=== PATIENT | female | born 1995 | race Caucasian/White ===

== ENCOUNTER → 2020-07-04 | Outpatient (CLI) | payer MEDICAID ==
[~2020-07-04] VITALS: Ht 162.6 cm; Wt 69.4 kg
== END ==
LOC: LAB 10:54
PROVIDERS: ATTEND Obstetrics & Gynecology
DX: O09.93 Supervision of high risk pregnancy, unspecified, third trimester (principal); Z3A.29 29 weeks gestation of pregnancy
CPT/HCPCS: 36415; 86850; 86900; 86901; 96372; J2791; J2790

== ENCOUNTER 2020-07-23 22:20 | Observation (INO) | payer MEDICAID ==
[2020-07-23] MEDS ORDERED: ACETAMINOPHEN 325 MG TABLET. PO PRN (22:30)
[2020-07-23 23:03] LABS: BILIRUBIN,URINE NEGATIVE (NEG); CLARITY,URINE CLEAR; COLOR,URINE YELLOW; NITRITE,URINE NEGATIVE (NEG); PH,URINE 7.5 (<5.0-8.0); PROTEIN,URINE NEGATIVE (NEG-TRACE)
[2020-07-23 23:09] LABS: BACTERIA,URINE MODERATE /HPF (0-FEW); RBC,URINE OCC /HPF (0-2); WBC,URINE 20-40 /HPF (0-4)
[2020-07-23 23:10] LABS: BARBITURATES NEG (NEG); BENZODIAZEPINES NEG (NEG); CANNABINOIDS NEG (NEG); COCAINE NEG (NEG); METHADONE NEG (NEG); OPIATES NEG (NEG); PHENCYCLIDINE NEG (NEG)
[2020-07-23 23:11] LABS: AMPHETAMINE/METHAMPHETAMINE NEG (NEG)
[2020-07-23] MEDS: IV RINGERS,LACTATED 1000ML 1,000 ML IV PRN ×2 (23:14→23:58)
[2020-07-23 23:43] LABS: BASO % 0 % (0-3); EOS # 0.2 x10^3/uL (0.0-0.7); EOS % 2 % (0-3); HEMATOCRIT 32.8 % (36.0-47.0); HEMOGLOBIN 11.2 g/dL (12.0-15.5); LYMPH % 24 % (24-48); MEAN CORPUSCULAR HEMOGLOBIN 30 pg (25-35); MEAN CORPUSCULAR HGB CONC 34 g/dL (31-37); MEAN CORPUSCULAR VOLUME 88 fL (79-100); MONO # 0.7 x10^3/uL (0.0-1.1); MONO % 8 % (0-9); NEUT # 5.7 x10^3/uL (1.8-7.7); NEUT % 66 % (31-73); PLATELET COUNT 157 x10^3/uL (140-400); RED BLOOD COUNT 3.75 x10^6/uL (3.50-5.40); RED CELL DISTRIBUTION WIDTH 13.5 % (11.5-14.5); WHITE BLOOD COUNT 8.6 x10^3/uL (4.0-11.0)
[2020-07-24] MEDS ORDERED: TERBUTALINE 1 MG/ML VIAL. ONE (00:10)
[2020-07-24 00:17] VITALS: BP 103/55
[2020-07-24] MEDS ORDERED: TERBUTALINE 1 MG/ML VIAL. SQ ONE (00:30)
== END 2020-07-24 02:10 | disposition home or self-care (01) ==
LOC: 3 SO LND 22:20
PROVIDERS: ADMIT Obstetrics & Gynecology; ATTEND Obstetrics & Gynecology
DX: O30.003 Twin pregnancy, unspecified number of placenta and unspecified number of amniotic sacs, third trimester (principal); Z20.822 Contact with and (suspected) exposure to COVID-19; O62.9 Abnormality of forces of labor, unspecified; O26.893 Other specified pregnancy related conditions, third trimester; R10.9 Unspecified abdominal pain; Z3A.31 31 weeks gestation of pregnancy; Z79.899 Other long term (current) drug therapy
CPT/HCPCS: 36415; 59025; 80307; 81001; 82947; 85025; 86592; 86703; 86762; 86850; 86900; 86901; 87086; 87340; 87426; 96360; 96361; 96372; G0378; G0379; J3105; J7120; U0003; U0005

== ENCOUNTER 2021-01-03 17:56 | Emergency (ER) | payer MEDICAID ==
[~2021-01-03] VITALS: Ht 157.5 cm; Wt 61.8 kg
[2021-01-03 19:33] VITALS: BP 108/59
[2021-01-03 20:02] LABS: BILIRUBIN,URINE NEGATIVE (NEG); CLARITY,URINE CLEAR; COLOR,URINE YELLOW; NITRITE,URINE POSITIVE (NEG); PROTEIN,URINE 30 mg/dL (NEG-TRACE); UROBILINOGEN,URINE 0.2 mg/dL (0.2 mg/dL)
[2021-01-03] MEDS ORDERED: PHEN-318 PO (20:04)
[2021-01-03] MEDS ORDERED: NITR100C62 PO (20:04)
--- NOTE | 2021-01-03 20:04 | PHYS DOC ---
Past Medical History Past Surgical History: Other Additional Past Surgical Histo: tubes in ears General Adult EDM: Chief Complaint: PAIN ON URINATION HPI: HPI: Patient is a 25 year old female presents with a chief complaint of dysuria urinary frequency suprapubic discomfort and bilateral flank pain. Patient states symptoms have been ongoing x1 day progressive becoming worse. Patient denies any associated nausea vomiting diarrhea. Review of Systems: Review of Systems: Review of systems: Constitutional symptoms- No fever, no chills. Eyes- No Discharge, No Visual Loss Respiratory symptoms- No shortness of breath, No wheezing, No Dyspnea on Exertion Cardiovascular Systems; No chest pain, No Palpitations, No syncope Gastrointestinal symptoms: NO abdominal pain, no nausea, no vomiting or diarrhea. Genitourinary symptoms: Positive dysuria positive urinary frequency positive pelvic discomfort Musculoskeletal symptoms: No back pain No extremity pain. NEUROLOGICAL Symptoms: No headache, no generalized weakness; No focal Weakness Skin: No rash. Heart Score: C/O Chest Pain: N/A Risk Factors: Risk Factors: DM, Current or recent (<one month) smoker, HTN, HLP, family history of CAD, obesity. Risk Scores: Score 0 - 3: 2.5% MACE over next 6 weeks - Discharge Home Score 4 - 6: 20.3% MACE over next 6 weeks - Admit for Clinical Observation Score 7 - 10: 72.7% MACE over next 6 weeks - Early Invasive Strategies Allergies: Allergies: Allergies Coded Allergies Type Severity Reaction Last Updated Verified No Known Drug Allergies 01/03/21 No Physical Exam: PE: Constitutional: Well developed, well nourished, no acute distress, non-toxic appearance. [] HENT: Normocephalic, atraumatic, bilateral external ears normal, oropharynx moist, no oral exudates, nose normal. [] Eyes: PERRLA, EOMI, conjunctiva normal, no discharge. [] Neck: Normal range of motion, no tenderness, supple, no stridor. [] Cardiovascular:Heart rate regular rhythm, no murmur [] Lungs & Thorax: Bilateral breath sounds clear to auscultation [] Abdomen: Bowel sounds normal, soft, no tenderness, no masses, no pulsatile masses. [] Skin: Warm, dry, no erythema, no rash. [] Back: No tenderness, no CVA tenderness. [] Extremities: No tenderness, no cyanosis, no clubbing, ROM intact, no edema. [] Neurologic: Alert and oriented X 3, normal motor function, normal sensory fun ction, no focal deficits noted. [] Psychologic: Affect normal, judgement normal, mood normal. [] Current Patient Data: Vital Signs: Vital Signs Date Time Temp Pulse Resp B/P (MAP) Pulse Ox O2 Delivery O2 Flow Rate FiO2 01/03/21 19:33 98.8 93 18 108/59 (75) 99 Room Air 98.8 EKG: EKG: [] Radiology/Procedures: Radiology/Procedures: [] Course & Med Decision Making: Course & Med Decision Making Pertinent Labs and Imaging studies reviewed. (See chart for details) [] Patient's urine consistent with urinary tract infection. She will prescribed Macrobid and Pyridium. Dragon Disclaimer: Anjali Disclaimer: This electronic medical record was generated, in whole or in part, using a voice recognition dictation system. Departure Departure Impression: Primary Impression: Urinary tract infection Disposition: HOME / SELF CARE / HOMELESS Condition: STABLE Referrals: NO PCP (PCP) Patient Instructions: Urinary Tract Infection Scripts Phenazopyridine Hcl (PYRIDIUM) 200 Mg Tablet 1 TAB PO TID for urinary discomfort for 3 Days, #9 TAB 0 Refills Prov: RYNE MCCORMACK I DO 01/03/21 Nitrofurantoin Monohyd/M-Cryst (MACROBID 100 MG CAPSULE) 100 Mg Capsule 1 CAP PO BID for 10 Days, #20 CAP 0 Refills Prov: RYNE MCCORMACK DO 01/03/21 RYNE MCCORMACK DO Jan 03, 2021 20:04
[2021-01-03 20:07] LABS: BACTERIA,URINE MANY /HPF (0-FEW); RBC,URINE 0 /HPF (0-2); WBC,URINE >40 /HPF (0-4)
== END 2021-01-03 20:19 | disposition home or self-care (01) ==
LOC: ER 17:56
DX: N39.0 Urinary tract infection, site not specified (principal)
CPT/HCPCS: 81001; 81025; 87086; 99283